=== PATIENT | female | born 2000 | race Caucasian/White ===

== ENCOUNTER 2019-11-30 16:27 | Emergency (ER) | payer BC, OTHER ==
--- NOTE | 2019-11-30 17:15 | EDM.PDOC ---
ED HPI GENERAL MEDICAL PROBLEM - General Stated Complaint: NECK PAIN Time Seen by Provider: 11/30/19 17:15 Source of Information: Reports: Patient History Limitations: Reports: No Limitations - History of Present Illness INITIAL COMMENTS - FREE TEXT/NARRATIVE: Patient comes emergency department today from the clinic for further evaluation of fall and head injury. This patient approximately 11:00 today slipped and fell on her child falling backwards striking the back of her head. She did not lose consciousness. Over the next couple of hours she developed pain in the very base of the posterior aspect of her scalp. She also complains of pain in her mid posterior cervical region. And intermittent tingling to her bilateral upper extremities. She does have a headache. No visual disturbances. No weakness dizziness lightheadedness. No nausea no vomiting. No change in the functionality of her upper or lower extremities. She does complain of intermittent tingling to the upper extremities which is not present currently. No chest pain no shortness of breath or difficulty breathing. No abdominal pain. No nausea no vomiting. No change in her bowel or bladder habits. She did take some Aleve prior to arrival with improvement. - Related Data Allergies Allergy/AdvReac Type Severity Reaction Status Date / Time No Known Allergies Allergy Verified 04/05/17 09:45 Home Meds: Home Meds . 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 ED EXAM, HEAD INJURY - Physical Exam Exam: See Below Exam Limited By: No Limitations General Appearance: Alert, WD/WN, No Apparent Distress Head: Normocephalic. No: Atraumatic (There is no bruising swelling ecchymosis bony deformity step-off crepitus subcutaneous emphysema. She has tenderness at the very base of her posterior midline scalp.), Scalp Lacerations, Scalp Swelling, Scalp Abrasions, Scalp Ecchymosis, Scalp Hematoma, Luciano's Sign, Facial Abrasions, Facial Ecchymosis, Facial Lacerations, Facial Swelling, Sinus Tenderness, Facial Tenderness, Raccoon Eyes Nexus Criteria: Posterior, Midline Cervical Tenderness. No: Evidence of Intoxication, Altered Level of Consciousness, Focal Neurological Deficit, Painful Distraction Injuries Eyes: Bilateral Eye: EOMI, Normal Inspection, PERRL Ears: Normal External Exam, Normal Canal, Normal TMs Nose: Normal Inspection, Normal Mucousa Throat/Mouth: Normal Inspection, Normal Lips, Normal Teeth Neck: Normal Alignment, Tenderness (midline and lateral), Tender Midline. No: Spinous Processes Tender Respiratory: No Respiratory Distress, Lungs Clear, Normal Breath Sounds Cardiovascular: Normal Peripheral Pulses, Regular Rate, Rhythm GI/Abdominal Exam: Normal Bowel Sounds, Soft, Non-Tender (Female) Exam: Deferred Rectal (Female) Exam: Deferred Back Exam: Normal Inspection, Full Range of Motion. 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 CT head per radiology no acute intracranial process. - Re-Assessments/Exams Free Text/Narrative Re-Assessment/Exam: 11/30/19 17:37 C-Collar placed on initial exam. 11/30/19 18:45 CT scan of the head and cervical spine was negative per radiology. I did remove the c-collar and the patient was able to flex and extend passively and active range of motion and as well as against resistance and she had no neck pain. She had no paresthesias of her upper or lower extremities. She has been asymptomatic since she has been here. Discharge her home with instructions on a concussion. Main thing here is to rest the brain is much as possible recheck if any problems she is understanding this and her questions are answered. Departure - Departure Time of Disposition: 18:13 Disposition: Home, Self-Care 01 Clinical Impression: Concussion Qualifiers: Encounter type: initial encounter Loss of consciousness presence/duration: without LOC Qualified Code(s): S06.0X0A - Concussion without loss of consciousness, initial encounter - Discharge Information Instructions: Concussion, Adult, [id number], Post-Concussion Syndrome, E asy-to-Read, Head Injury, Adult, [id number] Referrals: PCP,None [Primary Care Provider] - Additional Instructions: Tylenol and or Ibuprofen as needed for pain. Rest your brain as much as possible the next few days until your symptoms have resolved. NO bright lights sounds and try to sleep as much as possible. Plenty of fluids. Slowly increase your activity after the symptoms have resolved. Return to the ED if new or worsening symptoms. Follow up with PCP in the next 4-6 days if not improving sooner if worse. - Assessment/Plan Assessment:: Concussion Plan: Tylenol and or Ibuprofen as needed for pain. Rest your brain as much as possible the next few days until your symptoms have resolved. NO bright lights sounds and try to sleep as much as possible. Plenty of fluids. Slowly increase your activity after the symptoms have resolved. Return to the ED if new or worsening symptoms. Follow up with PCP in the next 4-6 days if not improving sooner if worse.
--- NOTE | 2019-11-30 17:59 | CT ---
[id number] CT/CT Head WO IV EXAM: CT Head WO IV CLINICAL DATA: TRAUMA COMPARISON: NO PREVIOUS SIMILAR EXAM IS AVAILABLE FOR COMPARISON. FINDINGS: There is no mass or mass effect. There is no hemorrhage or hydrocephalus. There are no extra-axial fluid collections. There are no sites of abnormal attenuation. IMPRESSION: NO PLAIN CT EVIDENCE OF ACUTE INTRACRANIAL PROCESS. Jeffery Samayoa MD 11/30/19 1582 Thank you for allowing us to participate in the care of your patient.
--- NOTE | 2019-11-30 18:11 | CT ---
[id number] CT/CT Cervical Spine WO IV Exam: CT Cervical Spine WO IV Clinical Data: TRAUMA COMPARISON: NO PREVIOUS SIMILAR EXAM IS AVAILABLE FINDINGS: No fracture or dislocation is seen There is a normal appearance of the C1-C2 articulation The prevertebral soft tissues are unremarkable IMPRESSION: NO FRACTURE OR SUBLUXATION Jeffery Samayoa MD 11/30/19 1775 Thank you for allowing us to participate in the care of your patient.
== END 2019-11-30 18:23 | disposition home or self-care (01) ==
LOC: VM.ED 16:27
DX: S06.0X0A Concussion without loss of consciousness, initial encounter (principal); W01.0XXA Fall on same level from slipping, tripping and stumbling without subsequent striking against object, initial encounter
CPT/HCPCS: 70450; 72125; 99283-25; 99284-GF